=== PATIENT | male | born 1960 | race Two or more races ===

== ENCOUNTER 2022-10-05 08:24 | Inpatient (IN) | payer MEDICAID ==
[~2022-10-05] VITALS: Ht 170.2 cm; Wt 68.0 kg
[2022-10-05] MEDS ORDERED: FOLIC ACID 1 MG TABLET PO ONE (09:00)
[2022-10-05] MEDS ORDERED: IV NS 0.9% 1,000 ML BAG IV ONE (09:00)
[2022-10-05] MEDS ORDERED: THIAMINE HCL 100 MG TABLET PO ONE (09:00)
[2022-10-05] MEDS ORDERED: THIAMINE HCL 100 MG TABLET ONE (09:05)
[2022-10-05] MEDS ORDERED: FOLIC ACID 1 MG TABLET ONE (09:05)
[2022-10-05] MEDS ORDERED: LORAZEPAM INJ 2 MG/ML VIAL ONE ×2 (09:14→11:36)
--- NOTE | 2022-10-05 09:47 | NUR ---
MOVE SHEET SUBMITTED.
[2022-10-05] MEDS ORDERED: LORAZEPAM INJ 2 MG/ML VIAL IV ONE ×2 (10:00→11:30)
[2022-10-05] MEDS ORDERED: Thiamine 100 MG in IV D5W 50 ML IV SCH (10:00)
--- NOTE | 2022-10-05 10:02 | NUR ---
URINE SAMPLE COLLECTED, BLOOD COLLECTED, COVID SWAB COLLECTED AND GIVEN TO LAB
--- NOTE | 2022-10-05 10:03 | NUR ---
20 G SALINE LOCK ESTABLISHED IN LEFT FOREARM
[2022-10-05 10:09] LABS: BASOPHILS % (AUTO) 0.2 % (0.0-2.0); HEMATOCRIT 31 % (39-51); HEMOGLOBIN 10.3 g/dL (13.5-17.5); LYMPHOCYTES # (AUTO) 0.5 K/uL (0.8-4.8); LYMPHOCYTES % (AUTO) 8.4 % (20.0-44.0); MEAN CORPUSCULAR HGB CONC 33 g/dl (31.0-36.0); MEAN CORPUSCULAR VOLUME 96 fL (80-96); MONOCYTES # (AUTO) 0.9 K/uL (0.1-1.30); MONOCYTES % (AUTO) 15.1 % (2.0-12.0); NEUTROPHILS # (AUTO) 4.6 K/uL (1.8-8.9); NEUTROPHILS % (AUTO) 76.3 % (43.0-81.0); PLATELET COUNT (AUTO) 67 K/uL (150-450); RED BLOOD CELL COUNT(AUTO) 3.25 MIL/uL (4.5-6.0)
[2022-10-05 10:13] LABS: BILIRUBIN,URINE NEGATIVE (NEGATIVE); COLOR,URINE YELLOW (YELLOW); LEUKOCYTE ESTERASE ,URINE NEGATIVE (NEGATIVE); NITRITE, URINE NEGATIVE (NEGATIVE); PROTEIN,URINE 1+ mg/dl (NEGATIVE); UGLUCOSE 1+ mg/dL (NEGATIVE); UROBILINOGEN,URINE 0.2 EU/dL (0.2)
[2022-10-05 10:20] LABS: CALCIUM, SERUM 8.3 mg/dL (8.5-10.1); CARBON DIOXIDE 16 mmol/L (21-32); CHLORIDE 94 mmol/L (98-107); CREATININE 1.6 mg/dL (0.6-1.3); GLUCOSE 82 mg/dL (74-106); POTASSIUM 3.7 mmol/L (3.5-5.1); SODIUM SERUM 136 mmol/L (136-145); UREA NITROGEN, BLOOD 13 mg/dL (7-18)
[2022-10-05 10:21] LABS: BACTERIA,URINE None seen /HPF (None Seen); RBC,URINE 0-2 /HPF (0-2); SQUAMOUS EPITHELIAL CELL,UR Moderate /HPF (None Seen); WBC,URINE 0-2 /HPF (0-3)
[2022-10-05 10:34] LABS: ALANINE AMINOTRANSFERASE 169 U/L (12-78); ALBUMIN 3.7 g/dL (3.4-5.0); ALCOHOL, BLOOD < 3 mg/dL (0-0); ALKALINE PHOSPHATASE 173 U/L (46-116); ASPARTATE AMINOTRANSFERASE 448 U/L (15-37); BILIRUBIN,TOTAL 1.5 mg/dL (0.2-1.0); TOTAL PROTEIN, SERUM 7.2 g/dL (6.4-8.2)
[2022-10-05 10:36] LABS: ACETAMINOPHEN < 10 ug/ml (10-30)
--- NOTE | 2022-10-05 11:35 | NUR ---
LAB CALLED LACT[facility]ID 16.5 DR. SIU NOTIFIED.
[2022-10-05 11:41] LABS: MAGNESIUM 1.4 mg/dL (1.8-2.4); PHOSPHORUS 6.5 mg/dL (2.5-4.9)
[2022-10-05] MEDS ORDERED: IV LR 1000 ML 1,000 ML IV ONE (12:00)
[2022-10-05] MEDS ORDERED: Magnesium 1 GM/2 ML VIAL IV ONE (12:00)
[2022-10-05] MEDS ORDERED: VANCOMYCIN 1 GM in IV D5W 250 ML IV ONE (12:00)
[2022-10-05] MEDS ORDERED: CEFEPIME 1 GM in IV D5W 50 ML IV ONE (12:00)
[2022-10-05] MEDS ORDERED: Magnesium 1GM/D5W 100ML PREMIX 100 ML IV ONE ×3 (12:09→14:10)
[2022-10-05 12:16] LABS: ABG BASE EXCESS -6.8 mmol/L; ABG PCO2 32.1 mmHg (35.0-45.0); ABG PH 7.361 (7.350-7.450); ABG PO2 244.7 mmHg (75.0-100.0); COHb 0.2 % (0.5-1.5); MetHb 0.3 % (0.0-1.5); O2Hb 98.2 % (94.0-97.0); SITE, ABG Right Radial; VENT MODE, BG 15L O2 NRB
--- NOTE | 2022-10-05 12:19 | NUR ---
BED 313-1
--- NOTE | 2022-10-05 13:11 | NUR ---
RN Receiving Note Patient arrived to unit AOx4 able to express his concerns. Patent only speaks Namibian. Patient oriented to unit and made aware of call light use. Patient verbalized understanding VSS stares he has a drinking problem. Foul smell, clothing with fecal and urine put in belongings bag. All safety precautions taken, call light and table within reach. No signs of infiltration or respiratory distress.
[2022-10-05] MEDS ORDERED: Magnesium 1GM/D5W 100ML PREMIX PIGGYBACK IV ONE (13:30)
--- NOTE | 2022-10-05 14:50 | NUR ---
REPORT GIVEN TO PRABHJOT PALMER
[2022-10-05] MEDS ORDERED: ZOLPIDEM TARTRATE 5 MG TABLET PO PRN (15:00)
[2022-10-05] MEDS ORDERED: MAG HYDROX/AL HYDROX/SIMETH 30 ML UDC PO PRN (15:00)
[2022-10-05] MEDS ORDERED: MAGNESIUM HYDROXIDE 30 ML UDC PO PRN (15:00)
[2022-10-05] MEDS ORDERED: ACETAMINOPHEN 325 MG TABLET PO PRN ×2 (15:00→18:00)
[2022-10-05] MEDS ORDERED: Z GUARD REMEDY 4 OZ OINT TP PRN (15:00)
[2022-10-05] MEDS ORDERED: ENOXAPARIN SODIUM 40 MG/0.4 ML DISP.SYRIN SQ SCH (15:00)
[2022-10-05] MEDS ORDERED: ONDANSETRON HCL/PF 4 MG/2 ML VIAL IVP PRN (15:00)
[2022-10-05] MEDS ORDERED: LORAZEPAM 1 MG TABLET PO PRN (15:00)
[2022-10-05 15:10] VITALS: BP 121/91
[2022-10-05 16:00] VITALS: BP 121/91
[2022-10-05 18:38] LABS: THYROID STIMULATING HORMONE 1.416 uIU/mL (0.358-3.74)
[2022-10-05 18:43] LABS: IRON, SERUM 165 ug/dl (50-175); TOTAL IRON BINDING CAPACITY 171 ug/dl (250-450)
--- NOTE | 2022-10-05 19:24 | NUR ---
RN Closing Note Patient AOx4 able to express his concerns. Provided care and medications as ordered. All safety precautions taken, call light and table within reach. Report given to pm nurse for continuity of care.
--- NOTE | 2022-10-05 19:35 | NUR ---
RN OPENING NOTE RECEIVED PATIENT IN BED; AWAKE, ALERT AND ORIENTED X 3. GERMAN SPEAKING. ON ROOM AIR; TOLERATING WELL SATURATING @ 96%. NOT IN ANY FORM OF RESPIRATORY OR CARDIAC DISTRESS. DENIES ANY PAIN OR DISCOMFORT AT THIS TIME. WITH IV ACCESS ON LEFT FOREARM 20G; PATENT AND INTACT INFUSING WITH NS 1L RUNNING @ 75 ML/HR; FLUSHES WELL. ON TELE MONITORING WITH CURRENT READING OF SINUS RHYTHM HR-87 BPM. SAFETY MEASURES IMPLEMENTED: CALL LIGHT AND TABLE WITHIN EASY REACH, SIDE RAILS UP X 3, BED IN LOWEST LOCKED POSITION. WILL CONTINUE TO MONITOR
[2022-10-05 20:00] VITALS: BP 115/61
[2022-10-05] MEDS: PIPERACILLIN /TAZOBACTAM 3.375 G in IV D5W 50 ML IV SCH (21:07)
[2022-10-06] MEDS: PIPERACILLIN /TAZOBACTAM 3.375 G in IV D5W 50 ML IV SCH ×5 (02:26→23:18)
[2022-10-06 04:00] VITALS: BP 104/63
[2022-10-06 06:10] LABS: BASOPHILS % (AUTO) 0.3 % (0.0-2.0); EOSINOPHILS % (AUTO) 0.6 % (0.0-6.0); HEMATOCRIT 27 % (39-51); HEMOGLOBIN 9.1 g/dL (13.5-17.5); LYMPHOCYTES # (AUTO) 0.8 K/uL (0.8-4.8); LYMPHOCYTES % (AUTO) 17.5 % (20.0-44.0); MEAN CORPUSCULAR HGB CONC 34 g/dl (31.0-36.0); MEAN CORPUSCULAR VOLUME 93 fL (80-96); MONOCYTES # (AUTO) 0.4 K/uL (0.1-1.30); MONOCYTES % (AUTO) 9.8 % (2.0-12.0); NEUTROPHILS # (AUTO) 3.3 K/uL (1.8-8.9); NEUTROPHILS % (AUTO) 71.8 % (43.0-81.0); RED BLOOD CELL COUNT(AUTO) 2.89 MIL/uL (4.5-6.0); WHITE BLOOD COUNT (AUTO) 4.6 K/uL (4.3-11.0)
[2022-10-06 06:24] LABS: PLATELET COUNT (AUTO) 35 K/uL (150-450)
--- NOTE | 2022-10-06 06:42 | NUR ---
RN CLOSING NOTE PATIENT IN BED; AWAKE, A/O X 3. YAKUT SPEAKING. STABLE ON ROOM AIR. IN NO ACUTE DISTRESS . DENIES ANY PAIN OR DISCOMFORT AT THIS TIME. WITH IV ACCESS LEFT FOREARM 20G; PATENT AND INTACT INFUSING WITH NS 1L RUNNING @ 75 ML/HR; FLUSHES WELL. ON TELE MONITORING WITH CURRENT READING OF SINUS RHYTHM HR-78 BPM. SAFETY MEASURES MAINTAINED: CALL LIGHT AND TABLE WITHIN REACH, SIDE RAILS UP X 3, BED IN LOWEST LOCKED POSITION. ENDORSED TO MORNING SHIFT FOR ZAKI.
[2022-10-06 06:44] LABS: ALBUMIN 2.9 g/dL (3.4-5.0); CALCIUM, SERUM 7.3 mg/dL (8.5-10.1); CREATININE 1.1 mg/dL (0.6-1.3); PHOSPHORUS 3.2 mg/dL (2.5-4.9); POTASSIUM 3.3 mmol/L (3.5-5.1); TOTAL PROTEIN, SERUM 5.9 g/dL (6.4-8.2)
[2022-10-06 06:52] LABS: THYROID STIMULATING HORMONE 1.492 uIU/mL (0.358-3.74)
--- NOTE | 2022-10-06 07:22 | NUR ---
RN OPENING NOTE PATIENT AWAKE IN BED RESTING, A/O X 3. NO S/S OF PAIN NOTED AT THIS TIME. ON ROOM AIR, NO DISTRESS OR SHORTNESS OF BREATH NOTED. IV ACCESS LFA #20G, INTACT, PATENT AND FLUSHING WELL. PATIENT WITH EXTERNAL ENGINEERING PROGRAM ANALYST WITH CURRENT READING OF SR AND HR OF 78, NO CARDIAC DISTRESS NOTED. FALL AND SAFETY MEASURES IN PLACE, BED ALARM ON, BED IN LOW AND LOCK POSITION, CALL LIGHT AND TABLE WITHIN EASY REACH, SIDE RAILS UP X2. WILL CONTINUE TO MONITOR.
[2022-10-06 08:00] VITALS: BP 117/68
[2022-10-06] MEDS: FOLIC ACID 1 MG TABLET PO SCH (08:14)
[2022-10-06] MEDS: PANTOPRAZOLE 40 MG VIAL IV SCH (08:14)
[2022-10-06] MEDS: MULTIVITAMINS,THERAGRAN 1 UDTAB TABLET PO SCH (08:14)
[2022-10-06] MEDS: THIAMINE HCL 100 MG TABLET PO SCH (08:14)
[2022-10-06] MEDS ORDERED: POTASSIUM CHLORIDE 20 MEQ TAB.PRT.SR PO ONE (09:00)
[2022-10-06 11:33] VITALS: BP 129/75
[2022-10-06 11:39] LABS: BASOPHILS % (MANUAL) 0 % (0.0-2.0); EOSINOPHILS % (MANUAL) 1 % (0-4); LYMPHOCYTES % (MANUAL) 10 % (16-48); MONOCYTES % (MANUAL) 8 % (0-11.0); NEUTROPHILS % (MANUAL) 81 (42-76)
[2022-10-06] MEDS ORDERED: VANCOMYCIN 1 GM in IV D5W 250ml IV SCH (12:00)
[2022-10-06 16:00] VITALS: BP 142/77
[2022-10-06] MEDS: IV NS 0.9% 1,000 ML IV PRN (17:24)
--- NOTE | 2022-10-06 19:22 | NUR ---
RN CLOSING NOTE PATIENT AWAKE IN BED RESTING, A/O X 3. NO S/S OF PAIN NOTED AT THIS TIME. ON ROOM AIR, NO DISTRESS OR SHORTNESS OF BREATH NOTED. IV ACCESS LFA #20G, INTACT, PATENT AND FLUSHING WELL. PATIENT WITH EXTERNAL ARTISTIC ASSOCIATE WITH CURRENT READING OF SR AND HR OF 80, NO CARDIAC DISTRESS NOTED. SCHEDULE MEDICATIONS ADMINISTERED. FALL AND SAFETY MEASURES IN PLACE, BED ALARM ON, BED IN LOW AND LOCK POSITION, CALL LIGHT AND TABLE WITHIN EASY REACH, SIDE RAILS UP X2. WILL ENDORSE TO STATION ENGINEER.
--- NOTE | 2022-10-06 19:30 | NUR ---
RN OPENING NOTE RECEIVED PATIENT IN BED; AWAKE, ALERT AND ORIENTED X 3. KISWAHILI SPEAKING. ON ROOM AIR; TOLERATING WELL SATURATING @ 95%. NOT IN ANY FORM OF RESPIRATORY OR CARDIAC DISTRESS. DENIES ANY PAIN OR DISCOMFORT AT THIS TIME. ON TELE MONITORING WITH CURRENT READING OF SINUS RHYTHM HR-87 BPM. WITH IV ACCESS ON LEFT FOREARM 20G; PATENT AND INTACT INFUSING WITH NS 1L RUNNING @ 75 ML/HR; FLUSHES WELL. SAFETY MEASURES IMPLEMENTED: CALL LIGHT AND TABLE WITHIN EASY REACH, SIDE RAILS UP X 3, BED IN LOWEST LOCKED POSITION. WILL CONTINUE TO MONITOR
[2022-10-06 20:00] VITALS: BP 133/83
[2022-10-07] VITALS: BP 145/99
[2022-10-07 04:00] VITALS: BP 152/94
[2022-10-07] MEDS: PIPERACILLIN /TAZOBACTAM 3.375 G in IV D5W 50 ML IV SCH (05:24)
[2022-10-07 06:15] LABS: BASOPHILS % (AUTO) 0.7 % (0.0-2.0); EOSINOPHILS % (AUTO) 1.2 % (0.0-6.0); HEMATOCRIT 27 % (39-51); HEMOGLOBIN 9.3 g/dL (13.5-17.5); LYMPHOCYTES # (AUTO) 0.8 K/uL (0.8-4.8); LYMPHOCYTES % (AUTO) 20.8 % (20.0-44.0); MEAN CORPUSCULAR HGB CONC 34 g/dl (31.0-36.0); MEAN CORPUSCULAR VOLUME 94 fL (80-96); MONOCYTES # (AUTO) 0.6 K/uL (0.1-1.30); MONOCYTES % (AUTO) 14.8 % (2.0-12.0); NEUTROPHILS # (AUTO) 2.4 K/uL (1.8-8.9); NEUTROPHILS % (AUTO) 62.5 % (43.0-81.0); RED BLOOD CELL COUNT(AUTO) 2.92 MIL/uL (4.5-6.0); WHITE BLOOD COUNT (AUTO) 3.8 K/uL (4.3-11.0)
[2022-10-07 06:31] LABS: PLATELET COUNT (AUTO) 31 K/uL (150-450)
--- NOTE | 2022-10-07 06:40 | NUR ---
RN CLOSING NOTE PATIENT IN BED; AWAKE, A/O X 3. IRISH SPEAKING. STABLE ON ROOM AIR. IN NO ACUTE DISTRESS . DENIES ANY PAIN OR DISCOMFORT AT THIS TIME. WITH IV ACCESS LEFT FOREARM 20G; PATENT AND INTACT INFUSING WITH NS 1L RUNNING @ 75 ML/HR; FLUSHES WELL. ON TELE MONITORING WITH CURRENT READING OF SINUS RHYTHM HR-72 BPM. SAFETY MEASURES MAINTAINED: CALL LIGHT AND TABLE WITHIN REACH, SIDE RAILS UP X 3, BED IN LOWEST LOCKED POSITION. ENDORSED TO MORNING SHIFT FOR ZAKI.
[2022-10-07 06:43] LABS: ALBUMIN 2.9 g/dL (3.4-5.0); BILIRUBIN,TOTAL 1.6 mg/dL (0.2-1.0); CALCIUM, SERUM 7.2 mg/dL (8.5-10.1); CREATININE 0.9 mg/dL (0.6-1.3); MAGNESIUM 1.7 mg/dL (1.8-2.4); PHOSPHORUS 2.3 mg/dL (2.5-4.9); POTASSIUM 3.8 mmol/L (3.5-5.1)
--- NOTE | 2022-10-07 07:15 | NUR ---
RN OPENING NOTE RECEIVED PATIENT IN BED; AWAKE, ALERT AND ORIENTED X 3. BAHRAINI SPEAKING, SLAT GRADER ASSISTS KLYSTROM TUBE TESTER, WITH SITTER, ON ROOM AIR; TOLERATING WELL SATURATING @ 97%. NOT IN ANY FORM OF RESPIRATORY OR CARDIAC DISTRESS. DENIES ANY PAIN OR DISCOMFORT AT THIS TIME. ON TELE MONITORING WITH CURRENT READING OF SINUS RHYTHM HR-85 BPM. WITH IV ACCESS ON LEFT FOREARM 20G; PATENT AND INTACT INFUSING WITH NS 1L RUNNING @ 75 ML/HR; FLUSHES WELL. SAFETY MEASURES IMPLEMENTED: CALL LIGHT AND TABLE WITHIN EASY REACH, SIDE RAILS UP X 3, BED IN LOWEST LOCKED POSITION. WILL CONTINUE TO MONITOR
[2022-10-07] MEDS: THIAMINE HCL 100 MG TABLET PO SCH (08:29)
[2022-10-07] MEDS: FOLIC ACID 1 MG TABLET PO SCH (08:33)
[2022-10-07] MEDS: PANTOPRAZOLE 40 MG VIAL IV SCH (08:33)
[2022-10-07] MEDS: MULTIVITAMINS,THERAGRAN 1 UDTAB TABLET PO SCH (08:34)
--- NOTE | 2022-10-07 09:59 | NUR ---
SS consult requested over the weekend for homelessness & ETOH withdrawal. SW will follow up at a later time.
[2022-10-07] MEDS ORDERED: K PHOS NEUTRAL 250 MG TABLET PO ONE (12:00)
--- NOTE | 2022-10-07 12:14 | NUR ---
SS Consult: SS consult requested for homelessness and alcohol rehab referrals. The pt. is a 62-year-old male pt. who was admitted to [facility] due to alcohol withdrawal per EMR. Upon SS consult, the pt. is Alert & Oriented x 4 and makes good eye contact. The pt. appears unkempt ad SW consucted interview in Macedonian per pt.'s request. Pt. has depressed mood & affect. Pt.s speech is clear and thought process is WNL. The pt. is hard of hearing. Pt. remained calm & cooperative throughout interview. Pt. denies SI/HI and states denies hallucinations. SW explored pt.s living situation. Per pt. he is currently experiencing homelessness and has been staying on the street. Pt. stated he has a friend that allows him to sleep in his garage. [facility] provided pt. with winter intermediate resources and referred him to [facility] for rehousing. Pt. stated he will follow up with resources. SW explored pt.s drug & ETOH use. Pt. states he does not use drugs and does drink alcohol. Per pt. he drinks small amount of alcohol because it helps keep him warm. Pt. minimizes that drinking is a problem for him. SW offered pt. referral to rehab facility and pt. refused. The pt. stated he is ambulatory and independent with all his ADLs. Plan: [facility] provided pt. with the following homeless and addiction resources and pt. accepted them. Pt. accepted homeless resources to find intermediate placement. Pt. stated he will go to his friends home to see if he will allow him to sleep in his garage as he as in the past. Pt. signed homeless waiver and it was placed in the pt.s chart. [facility] provided pt. with bus TAP card and pt. accepted it. [place] Usp list : [facility]; AB Adult WSP site; NAV[facility]O Adult WSP site; and WFD Adult WSP site; instruction to call 211 for availability. Year-round shelters: [facility] [place] [address] [place] [address] ; [facility] [place] [address] [place] [address]; [facility] [address] [place] [address]. [facility] [address] Hygiene: [facility]: [address] [place] ; [facility] [address] [address] [place] ; [facility] [address], [place] . Food Resources: [place] [facility] at [facility]- [address] [place]; Meet Each Need with Dignity ([facility]) [address] [facility] [place]; [facility] [address] [facility]; [facility] [address] [facility]. Mental Health resources provided: [facility] [address] [place] [address] ; [facility] [address], [place], [place] [phone] ; [facility] [address] [place] [address] ; [facility] [address] [place], [place] [id number] Healthcare Clinics: [facility] [address], [address] [place]. [place] ; [facility] [address] [place] [address]; [facility] [address] [place] [address] [phone] Counseling--Outpatient [facility] [place] [address], [place] [address] (Specializes in in-depth psychotherapy for emotional distress: anxiety, depression, interpersonal conflicts, life transitions, childhood abuse) [facility] [address] [place] [address] (Assist with solving problem marital difficulties, separation & divorce, aging parents, & grief, chronic & terminal illness) [facility] [address] [place] [address] (Deal with loss & grief, anxiety, marital difficulties) Homebound/Mental Health Services [address] [facility], [address] [place] [address] (Provide in-home mental services to people who are incapable of leaving their homes) [facility] Elder[facility] Senior Service/Resource Center [address] [place] [address] [facility] [address] [place] [address] PSYCHIATRIC OUTPATIENT SERVICES [facility] Partial Hospitalization and Intensive Outpatient Program (Managed Care and [place] Only)[address] [facility]. [facility] [phone] [facility] Partial Hospitalization and Outpatient Fqtcyom[address] [place], [place] [phone] Replaced by [facility] [address]ister [id number] [facility] [facility] [place], [place] [phone] [facility] Partial Hospitalization and Outpatient [id number] [place], [phone] Substance Abuse resources provided included: [facility] Substance Abuse Self-Helpline ([facility]) ; CRI -[facility]LP [address] [facility] [place]. [place] [address] ; [facility] [address] [facility] [address] ; [facility] [address] [facility] [facility] [address] ; [facility] [address] [facility] [address] ; [facility] [address] [facility] [address] ; [facility] [address] [facility] [phone] ; [facility] Substance Abuse Helpline(SAS)-[facility] ; [facility] ; [place] [place]; [facility] [place]; [facility] [place]; [facility] Iker [place]; [facility] [place]; [facility]; [facility] [place]; [facility]. Nita Hernández; Alcoholics Anonymous -SFV; Ac-Qubg-Oznbfgg ; Marijuana Anonymous -SFV; Narcotics Anonymous www.na.org;
[2022-10-07] MEDS: Magnesium 1GM/D5W 100ML PREMIX 100 ML IV SCH ×2 (13:13→13:26)
[2022-10-07] MEDS: VANCOMYCIN 0.75 GM in IV D5W 250 ML IV SCH ×3 (13:30)
[2022-10-07] MEDS: PIPERACILLIN /TAZOBACTAM 3.375 G in IV D5W 100 ML IV SCH ×2 (14:22→21:11)
[2022-10-07] MEDS: LORAZEPAM INJ 2 MG/ML VIAL IV PRN ×2 (16:24→22:28)
[2022-10-07 19:27] LABS: BAND % (MANUAL) 1 % (0.0-5.0); EOSINOPHILS % (MANUAL) 1 % (0-4); LYMPHOCYTES % (MANUAL) 7 % (16-48); MONOCYTES % (MANUAL) 7 % (0-11.0); NEUTROPHILS % (MANUAL) 84 (42-76)
--- NOTE | 2022-10-07 19:45 | NUR ---
RN CLOSING NOTE PT IN BED; AWAKE, A/O X 3. NIGERIAN SPEAKING, WEBLOGIC ADMINISTRATOR SALES ENGAGEMENT MANAGER, STABLE ON ROOM AIR. IN NO ACUTE DISTRESS . DENIES ANY PAIN OR DISCOMFORT AT THIS TIME. WITH IV ACCESS LEFT FOREARM 20G; PATENT AND INTACT INFUSING WITH NS 1L RUNNING @ 75 ML/HR; FLUSHES WELL. ON TELE MONITORING WITH CURRENT READING OF SINUS RHYTHM HR-76 BPM. SAFETY MEASURES MAINTAINED: CALL LIGHT AND TABLE WITHIN REACH, SIDE RAILS UP X 3, BED IN LOWEST LOCKED POSITION. ENDORSED TO FINISHING AREA OPERATOR RN FOR ZAKI.
--- NOTE | 2022-10-07 21:55 | NUR ---
RN OPENING NOTE RECEIVED PATIENT LYING AWAKE IN BED. A/O X 3. KAZAKH SPEAKING, WITH EPISODES OF CONFUSION. SITTER AT BEDSIDE. STABLE ON ROOM AIR. IN NO ACUTE DISTRESS. DENIES ANY PAIN OR DISCOMFORT AT THIS TIME. WITH IV ACCESS LEFT FOREARM #20, PATENT AND INTACT INFUSING WITH NS 1L RUNNING @ 75 ML/HR. ON TELE MONITORING WITH CURRENT READING OF SINUS RHYTHM HR-76 BPM. SAFETY MEASURES MAINTAINED. KEPT COMFORTABLE. WILL CONTINUE TO MONITOR.
--- NOTE | 2022-10-07 22:30 | NUR ---
RN NOTES - PATIENT IS AGITATED AND RESTLESS. BEEN PULLING OUT HIS IV PER SITTER. SECURED IV WITH KERLIX AND SLEEVES ON. GIVEN ATIVAN IV PRN ORDERED. KEPT COMFORTABLE.
--- NOTE | 2022-10-08 00:42 | NUR ---
RN NOTES - PATIENT IS CONFUSED. REFUSED VANCO ANTIBIOTIC. EXPLAINED RISK AND BENEFITS X3. STILL REFUSED. WITH SITTER AT BEDSIDE. KEPT COMFORTABLE.
[2022-10-08] MEDS: PIPERACILLIN /TAZOBACTAM 3.375 G in IV D5W 100 ML IV SCH ×4 (05:00→20:43)
--- NOTE | 2022-10-08 05:17 | NUR ---
RN NOTES - PATIENT REFUSED ZOSYN IV. EXPLAINED RISK AND BENEFITS X3. STILL REFUSED. WITH SITTER AT BEDSIDE. PATIENT REFUSED VITAL SIGNS TAKEN. REFUSED LINEN CHANGE. PROVIDED TEACHING. REFUSED.
--- NOTE | 2022-10-08 06:26 | NUR ---
MOBILE SOLUTIONS ARCHITECT CLOSING NOTE RECEIVED PATIENT LYING ASLEEP IN BED. A/O X 3. MALAY SPEAKING, WITH EPISODES OF CONFUSION. SITTER AT BEDSIDE. STABLE ON ROOM AIR. IN NO ACUTE DISTRESS. DENIES ANY PAIN OR DISCOMFORT AT THIS TIME. WITH IV ACCESS LEFT FOREARM #20, PATENT AND INTACT, WITH KERLIX AND SLEEVES ON. TELE MONITOR ON STANDBY FOR NOW. SEMICONDUCTOR ENGINEER WAS INFORMED. SAFETY MEASURES MAINTAINED. KEPT COMFORTABLE. WILL ENDORSE TO NEXT SHIFT RN FOR ZAKI.
[2022-10-08] MEDS: PANTOPRAZOLE 40 MG TABLET.DR PO SCH (08:12)
--- NOTE | 2022-10-08 08:41 | NUR ---
LION TRAINER OPENING NOTE RECEIVED PATIENT LYING AWAKE IN BED. A/O X 3. CZECH SPEAKING, BIOENGINEER AND COLLEAGUE INTERPRETERS, WITH EPISODES OF CONFUSION. SITTER AT BEDSIDE. STABLE ON ROOM AIR. IN NO ACUTE DISTRESS. DENIES ANY PAIN OR DISCOMFORT AT THIS TIME. WITH IV ACCESS LEFT FOREARM #20, PATENT AND INTACT, WITH KERLIX AND SLEEVES ON. TELE MONITOR ON STANDBY FOR NOW. MONUMENT LETTERER WAS INFORMED. SAFETY MEASURES MAINTAINED. KEPT COMFORTABLE. BM X1, SOFT, SO FAR, WILL CONTINUE TO MONITOR
[2022-10-08] MEDS: MULTIVITAMINS,THERAGRAN 1 UDTAB TABLET PO SCH (09:59)
[2022-10-08] MEDS: THIAMINE HCL 100 MG TABLET PO SCH (09:59)
[2022-10-08] MEDS: FOLIC ACID 1 MG TABLET PO SCH (09:59)
[2022-10-08 11:20] LABS: BASOPHILS % (AUTO) 0.3 % (0.0-2.0); EOSINOPHILS % (AUTO) 1.5 % (0.0-6.0); HEMATOCRIT 27 % (39-51); HEMOGLOBIN 9.2 g/dL (13.5-17.5); LYMPHOCYTES # (AUTO) 0.5 K/uL (0.8-4.8); LYMPHOCYTES % (AUTO) 16.3 % (20.0-44.0); MEAN CORPUSCULAR HGB CONC 34 g/dl (31.0-36.0); MEAN CORPUSCULAR VOLUME 94 fL (80-96); MONOCYTES # (AUTO) 0.7 K/uL (0.1-1.30); MONOCYTES % (AUTO) 21.4 % (2.0-12.0); NEUTROPHILS # (AUTO) 1.9 K/uL (1.8-8.9); NEUTROPHILS % (AUTO) 60.5 % (43.0-81.0); RED BLOOD CELL COUNT(AUTO) 2.92 MIL/uL (4.5-6.0); WHITE BLOOD COUNT (AUTO) 3.2 K/uL (4.3-11.0)
[2022-10-08 11:29] LABS: PLATELET COUNT (AUTO) 43 K/uL (150-450)
[2022-10-08 11:35] LABS: ALBUMIN 2.9 g/dL (3.4-5.0); BILIRUBIN,TOTAL 1.5 mg/dL (0.2-1.0); CALCIUM, SERUM 7.7 mg/dL (8.5-10.1); CREATININE 0.8 mg/dL (0.6-1.3); MAGNESIUM 1.5 mg/dL (1.8-2.4); POTASSIUM 3.3 mmol/L (3.5-5.1); TOTAL PROTEIN, SERUM 6.2 g/dL (6.4-8.2)
--- NOTE | 2022-10-08 11:41 | NUR ---
PLATELET RESULT TODAY REPORTED TO LACY MCGRAW FROM YESTERDAY
[2022-10-08] MEDS: VANCOMYCIN 0.75 GM in IV D5W 250 ML IV SCH ×4 (12:21→23:54)
--- NOTE | 2022-10-08 18:15 | NUR ---
STEWARDESSES TEACHER CLOSING NOTE PATIENT AWAKE IN BED. A/O X 3. CAYMAN ISLANDER SPEAKING, FOOD SAFETY SPECIALIST INTERPRETERS, WITH EPISODES OF CONFUSION. SITTER AT BEDSIDE. STABLE ON ROOM AIR. IN NO ACUTE DISTRESS. DENIES ANY PAIN OR DISCOMFORT AT THIS TIME. WITH IV ACCESS LEFT FOREARM #20, PATENT AND INTACT, WITH KERLIX AND SLEEVES ON. TELE MONITOR BACK AT 1635HR. WAD BLANKING PRESS ADJUSTER AWARE. SAFETY MEASURES MAINTAINED. KEPT COMFORTABLE. WILL ENDORSE TO LINE ASSEMBLER RN FOR ZAKI.
[2022-10-08 19:25] LABS: EOSINOPHILS % (MANUAL) 4 % (0-4); LYMPHOCYTES % (MANUAL) 14 % (16-48); MONOCYTES % (MANUAL) 13 % (0-11.0); NEUTROPHILS % (MANUAL) 69 (42-76)
--- NOTE | 2022-10-08 19:30 | NUR ---
MS RN OPENING NOTE RECEIVED PT AWAKE IN BED. SITTER AT BEDSIDE. A/O X2 WITH PERIODS OF CONFUSION. PT STABLE ON ROOM AIR. NO SOB OR S/S OF RESPIRATORY DISTRESS. BREATHING EVEN AND UNLABORED. IV ACCESS LFA 20G SL, INTACT AND PATENT. SAFETY PRECAUTIONS IN PLACE. BED IN LOWEST LOCKED POSITION, HOB ELEVATED, SIDE RAILS UP X3, AND CALL LIGHT AND TABLE WITHIN REACH. ALL NEEDS MET AT THIS TIME.
[2022-10-08] MEDS ORDERED: POTASSIUM CHLORIDE 10 MEQ TABLET.SA PO ONE (21:00)
[2022-10-08] MEDS: Magnesium 1GM/D5W 100ML PREMIX 100 ML IV SCH ×2 (21:33→22:39)
[2022-10-09] MEDS: PIPERACILLIN /TAZOBACTAM 3.375 G in IV D5W 100 ML IV SCH (04:52)
--- NOTE | 2022-10-09 05:28 | NUR ---
RN NOTE INFORM SLITTER HELPER [place]O OF INCREASED BP DURING SHIFT. WITH NEW ORDER FOR HYDRALAZINE 10 MG IV Q6H PRN FOR SBP >180. NEW ORDER NOTED AND CARRIED OUT.
[2022-10-09] MEDS ORDERED: hydrALAZINE HCL IV 20 MG VIAL IV PRN (05:30)
[2022-10-09 06:38] LABS: BASOPHILS % (AUTO) 0.2 % (0.0-2.0); EOSINOPHILS % (AUTO) 1.9 % (0.0-6.0); HEMATOCRIT 28 % (39-51); HEMOGLOBIN 9.4 g/dL (13.5-17.5); LYMPHOCYTES # (AUTO) 0.6 K/uL (0.8-4.8); LYMPHOCYTES % (AUTO) 18.4 % (20.0-44.0); MEAN CORPUSCULAR HGB CONC 34 g/dl (31.0-36.0); MEAN CORPUSCULAR VOLUME 94 fL (80-96); MONOCYTES # (AUTO) 0.9 K/uL (0.1-1.30); MONOCYTES % (AUTO) 27.9 % (2.0-12.0); NEUTROPHILS # (AUTO) 1.7 K/uL (1.8-8.9); NEUTROPHILS % (AUTO) 51.6 % (43.0-81.0); PLATELET COUNT (AUTO) 55 K/uL (150-450); RED BLOOD CELL COUNT(AUTO) 2.93 MIL/uL (4.5-6.0); WHITE BLOOD COUNT (AUTO) 3.3 K/uL (4.3-11.0)
--- NOTE | 2022-10-09 06:50 | NUR ---
MS RN CLOSING NOTE PT AWAKE IN BED. SITTER AT BEDSIDE. A/O X2-3 WITH PERIODS OF CONFUSION. PT STABLE ON ROOM AIR. NO SOB OR S/S OF RESPIRATORY DISTRESS. BREATHING EVEN AND UNLABORED. IV ACCESS LFA 20G RUNNING NS @ 75 ML/HR AND RFA 20G SL, INTACT AND PATENT. ALL DUE MEDS GIVEN ORDERED. KEPT CLEAN AND DRY. SAFETY PRECAUTIONS IN PLACE AT ALL TIMES. BED IN LOWEST LOCKED POSITION, HOB ELEVATED, SIDE RAILS UP X3, AND CALL LIGHT AND TABLE WITHIN REACH. ALL NEEDS MET AT THIS TIME AND WILL ENDORSE TO ONCOMING NURSE FOR ZAKI.
[2022-10-09 07:01] LABS: ALBUMIN 2.8 g/dL (3.4-5.0); BILIRUBIN,TOTAL 1.2 mg/dL (0.2-1.0); CALCIUM, SERUM 7.9 mg/dL (8.5-10.1); CREATININE 0.7 mg/dL (0.6-1.3); MAGNESIUM 1.7 mg/dL (1.8-2.4); POTASSIUM 3.4 mmol/L (3.5-5.1); TOTAL PROTEIN, SERUM 6.2 g/dL (6.4-8.2)
[2022-10-09 08:00] VITALS: BP 139/79
--- NOTE | 2022-10-09 08:00 | NUR ---
MS RN OPENING NOTE RECEIVED PATIENT LYING AWAKE IN BED. A/O X 3. SURINAMESE SPEAKING, SUPERVISOR CUTTING AND BONING AND COLLEAGUE INTERPRETERS, WITH EPISODES OF CONFUSION. SITTER AT BEDSIDE. STABLE ON ROOM AIR. IN NO ACUTE DISTRESS. ADMITS TO MILD ABDOMINAL PAIN AT THIS TIME, BUT REFUSES MEDICATION FOR PAIN. IV ACCESS LEFT FOREARM #20, PATENT AND INTACT, WITH KERLIX AND SLEEVES ON. IV ACCESS ON RIGHT FOREARM PATTENT AND INTACT. SAFETY MEASURES MAINTAINED. KEPT COMFORTABLE. WILL CONTINUE TO MONITOR
[2022-10-09] MEDS: THIAMINE HCL 100 MG TABLET PO SCH (08:29)
[2022-10-09] MEDS: PANTOPRAZOLE 40 MG TABLET.DR PO SCH (08:29)
[2022-10-09] MEDS: FOLIC ACID 1 MG TABLET PO SCH (08:29)
[2022-10-09] MEDS: MULTIVITAMINS,THERAGRAN 1 UDTAB TABLET PO SCH (08:29)
--- NOTE | 2022-10-09 08:30 | NUR ---
LAB REPORT COMPENSATION/BENEFITS SPECIALIST, RIVER, REPORTED THAT PATIENT'S STOOL CULTURE TESTED POSITIVE FOR cLOSTRIDIUM DIFFICILE AT 08:15 AM. NOTIFIED HOSPITALIST, RAGHAV BROWN OF POSITIVE C. diff. ANTIBIOTICS TYPE, DOSE AND ROUTES CHANGED. PATIENT MOVED TO ROOM 329 AND PUT ON CONTACT ISOLATION PRECAUTIONS FOR c. diff. HEMOGLOBIN A1c = 10.4. gwendolyn BROWN ORDERED ACCUCHECKS AND GLUCOPHAGE PO BID. PATIENT HAS GOOD APPETITE EATING 100% OF MEALS. WILL CONTINUE TO MONITOR.
[2022-10-09] MEDS ORDERED: MAGNESIUM OXIDE 400 MG TABLET PO ONE (10:00)
[2022-10-09] MEDS: METFORMIN 500 MG TABLET PO SCH ×2 (10:12→17:24)
[2022-10-09] MEDS: ACIDOPHILUS/BULGARICUS 1 EACH TAB.CHEW PO SCH ×3 (10:12→17:24)
[2022-10-09] MEDS ORDERED: POTASSIUM CHLORIDE 20 MEQ TAB.PRT.SR PO SCH (11:00)
[2022-10-09] MEDS: METRONIDAZOLE 500 MG TABLET PO SCH ×2 (12:40→21:56)
[2022-10-09] MEDS: VANCOMYCIN HCL 125 MG/2.5 ML ORAL.SUSP PO SCH ×3 (13:29→21:56)
[2022-10-09] MEDS: GENTAMICIN 320 MG in IV D5W 100 ML IV SCH (14:20)
[2022-10-09 15:52] VITALS: BP 140/77
[2022-10-09 17:42] LABS: BAND % (MANUAL) 1 % (0.0-5.0); EOSINOPHILS % (MANUAL) 1 % (0-4); LYMPHOCYTES % (MANUAL) 8 % (16-48); MONOCYTES % (MANUAL) 19 % (0-11.0); NEUTROPHILS % (MANUAL) 71 (42-76)
--- NOTE | 2022-10-09 18:48 | NUR ---
MS RN CLOSING NOTE PATIENT AWAKE IN BED. A/O X 3 WATCHING TELEVISION. KINYARWANDA SPEAKING, BIOFUELS ENGINEERING MANAGER INTERPRETERS, WITH EPISODES OF CONFUSION. STABLE ON ROOM AIR. IN NO ACUTE DISTRESS. DENIES ANY PAIN OR DISCOMFORT AT THIS TIME. PT HAS IV ACCESS LEFT FOREARM #20, PATENT AND INTACT, WITH KERLIX AND SLEEVES ON. PT REFUSED TO WORK WITH PHYSICAL THERAPY TODAY. PATIENT TOOK ALL MEDICATIONS PRESCRIBED AND OTHERWISE COMPLIANT WITH CONTACT ISOLATION PRECAUTIONS. SAFETY MEASURES MAINTAINED. KEPT COMFORTABLE. WILL ENDORSE TO WARP PREPARER RN FOR ZAKI.
[2022-10-09] MEDS: IV NS 0.9% 1,000 ML IV PRN (19:28)
[2022-10-09 20:00] VITALS: BP 150/80
--- NOTE | 2022-10-09 20:07 | NUR ---
MS RN OPENING NOTES: RECEIVED PATIENT SLEEP IN BED COMFORTABLY, AROUSABLE TO VERBAL STIMULI, BED IN LOW POSITION, CALL LIGHTS WITHIN REACH, NO COMPLAIN OF PAIN AND DISCOMFORT AT THIS TIME, ON ROOM AIR SATURATING WELL, IV LINE AT LFA#20 WITH ONGOING NSS@75ML/HR INFUSING WELL, PATIENT IS A/OX3 MALAY SPEAKING ABLE TO MAKE NEEDS KNOWN, KEPT CLEAN AND DRY ALL NEEDS MET WILL CONTINUE TO MONITOR.
--- NOTE | 2022-10-09 22:00 | NUR ---
RN MS NOTE RECEIVED REPORT FROM NURSE ARENAS. PT RESTING IN BED. MEDS ADMINISTERED. WILL CARE FOR PT, AND CONTINUE POC.
[2022-10-10] MEDS: METRONIDAZOLE 500 MG TABLET PO SCH ×3 (05:58→20:14)
[2022-10-10 07:07] LABS: CALCIUM, SERUM 7.9 mg/dL (8.5-10.1); CREATININE 0.7 mg/dL (0.6-1.3); POTASSIUM 3.6 mmol/L (3.5-5.1)
--- NOTE | 2022-10-10 07:10 | NUR ---
MS RN CLOSING NOTE LEFT PT AWAKE IN BED. PT A/O X3 WITH PERIODS OF CONFUSION. PT STABLE ON ROOM AIR. NO SOB OR S/S OF RESPIRATORY DISTRESS. BREATHING EVEN AND UNLABORED. IV ACCESS LFA 20G RUNNING NS @ 75 ML/HR AND RFA 20G SL, INTACT AND PATENT. ALL DUE MEDS GIVEN ORDERED. KEPT CLEAN AND DRY. BS CHECKED, BS: 226 THIS AM.SAFETY PRECAUTIONS IN PLACE AT ALL TIMES. BED IN LOWEST LOCKED POSITION, HOB ELEVATED, SIDE RAILS UP X3, AND CALL LIGHT AND TABLE WITHIN REACH. ALL NEEDS MET AT THIS TIME. WILL ENDORSE TO ONCOMING NURSE FOR ZAKI.
--- NOTE | 2022-10-10 07:52 | NUR ---
MS RN OPENING NOTE RECEIVED PATIENT LYING AWAKE IN BED. WATCHING TELEVISION, A/O X 3. PATIENT SPEAKS KINYARWANDA. STABLE ON ROOM AIR. IN NO ACUTE DISTRESS. ADMITS TO MILD ABDOMINAL PAIN AT THIS TIME, BUT REFUSES MEDICATION FOR PAIN. IV ACCESS LEFT FOREARM #20, PATENT AND INTACT, WITH KERLIX AND SLEEVES ON. IV ACCESS ON RIGHT FOREARM PATENT AND INTACT. SAFETY MEASURES MAINTAINED. KEPT COMFORTABLE. WILL CONTINUE TO MONITOR
[2022-10-10] MEDS: PANTOPRAZOLE 40 MG TABLET.DR PO SCH (08:05)
[2022-10-10 08:35] VITALS: BP 137/75
[2022-10-10] MEDS: FOLIC ACID 1 MG TABLET PO SCH (08:51)
[2022-10-10] MEDS: MULTIVITAMINS,THERAGRAN 1 UDTAB TABLET PO SCH (08:51)
[2022-10-10] MEDS: VANCOMYCIN HCL 125 MG/2.5 ML ORAL.SUSP PO SCH ×4 (08:51→20:14)
[2022-10-10] MEDS: ACIDOPHILUS/BULGARICUS 1 EACH TAB.CHEW PO SCH ×3 (08:51→17:44)
[2022-10-10] MEDS: THIAMINE HCL 100 MG TABLET PO SCH (08:51)
[2022-10-10] MEDS: METFORMIN 500 MG TABLET PO SCH ×2 (08:51→17:44)
[2022-10-10] MEDS: IV NS 0.9% 1,000 ML IV PRN ×2 (09:59→21:12)
[2022-10-10] MEDS: GENTAMICIN 320 MG in IV D5W 100 ML IV SCH (14:03)
[2022-10-10 16:23] VITALS: BP 152/88
--- NOTE | 2022-10-10 18:51 | NUR ---
MS RN CLOSING NOTE PATIENT AWAKE IN BED. A/O X 3 WATCHING TELEVISION. AZERI SPEAKING, IC DESIGN ENGINEER INTERPRETERS, WITH EPISODES OF CONFUSION. STABLE ON ROOM AIR. IN NO ACUTE DISTRESS. DENIES ANY PAIN OR DISCOMFORT AT THIS TIME. PT HAS IV ACCESS LEFT FOREARM #20, PATENT AND INTACT AND ON RIGHT FOREARM # 20 GAUGE PIV THAT IS ALSO PATENT AND INTACT. WITH KERLIX AND SLEEVES ON. PT REFUSED TO WORK WITH PHYSICAL THERAPY AGAIN TODAY. BLOOD CULTURES DRAWN TODAY AND RESULTS PENDING. PATIENT TO HAVE CXR AT 6:00 am TOMORROW. PATIENT TOOK ALL MEDICATIONS PRESCRIBED AND OTHERWISE COMPLIANT WITH CONTACT ISOLATION PRECAUTIONS. SAFETY MEASURES MAINTAINED. KEPT COMFORTABLE. WILL ENDORSE TO PLANT GENERAL MANAGER RN FOR ZAKI.
--- NOTE | 2022-10-10 19:10 | NUR ---
MS RN OPENING NOTE PATIENT IS IN BED SLEEPING. EASILY BEING AROUSED. HE IS MALAYSIAN SPEAKER. A/O X 3. HE IS ON RA, NO S/S OF SOB OR DISTRESS. PT IS ON CONTACT ISOLATION DUE TO C-DIFF POSITIVE. PT DENIES OF HAVING PAIN. IV ACCESS ONE IS AT HIS LEFT FOREARM, #20G, SL; ANOTHER ONE IS AT HIS RIGHT FOREARM; BOTH ARE PATENT AND INTACT. RIGHT FA IV RUNNING NS @75 ML/HR. TOLERATED WELL. SAFETY MEASURES ARE IN PLACED: BED IN LOWEST AND LOCKED POSITION; SIDE RAILS UP X 2; CALL LIGHT AND TABLE ARE WITHIN EASY REACH. WILL CLOSELY [id number] THE PATIENT AND PROVIDE THE CARE PATIENT NEEDS.
[2022-10-10 20:21] VITALS: BP 128/56
[2022-10-11] MEDS: METRONIDAZOLE 500 MG TABLET PO SCH ×2 (04:23→12:21)
[2022-10-11 06:15] LABS: CALCIUM, SERUM 8.4 mg/dL (8.5-10.1); CREATININE 0.8 mg/dL (0.6-1.3); POTASSIUM 3.9 mmol/L (3.5-5.1)
--- NOTE | 2022-10-11 06:54 | NUR ---
MS RN CLOSING NOTE PATIENT IS IN BED SLEEPING. EASILY BEING AROUSED. A/O X 3. HE IS ON RA, NO S/S OF SOB OR DISTRESS. PT DENIES OF HAVING PAIN. IV ACCESS ONE IS AT HIS LEFT FOREARM, #20G, SL; ANOTHER ONE IS AT HIS RIGHT FOREARM; BOTH ARE PATENT AND INTACT. RIGHT FA IV RUNNING NS @75 ML/HR. TOLERATED WELL. SAFETY MEASURES ARE IN PLACED: BED IN LOWEST AND LOCKED POSITION; SIDE RAILS UP X 2; CALL LIGHT AND TABLE ARE WITHIN EASY REACH. WILL ENDORSE THE NEXT SHIFT NURSE FOR CONTINUING PATIENT CARE.
--- NOTE | 2022-10-11 07:22 | NUR ---
MS RN OPENING NOTES RECEIVED PATIENT IN BED AWAKE AND WATCHING TV. A/O X 3. SPEAKS JAPANESE AND UNDERSTANDS MINIMAL ERITREAN, DENIES PAIN OR ANY DISCOMFORTS AT THIS TIME. CONTACT PRECAUTIONS MAINTAINED FOR C-DIFF. ON ROOM AIR, TOLERATING WELL, BREATHING EVEN AND UNLABORED. IV ACCESS ON RFA #20G INTACT WITH IVF OF NS @ 75ML/HR INFUSING WELL, NO S/S OF INFILTRATION AT SITE NOTED. PT HAS ANOTHER IV ACCESS ON LFA G#20 PATENT AND INTACT. SAFETY MEASURES IN PLACE: BED IN LOWEST LOCKED POSITION,. SR UP X2, CALL LIGHT AND TRAY TABLE W/I REACH OF PT. WILL CONTINUE TO MONITOR
[2022-10-11] MEDS: PANTOPRAZOLE 40 MG TABLET.DR PO SCH (07:44)
[2022-10-11 08:00] VITALS: BP 128/67
[2022-10-11] MEDS: FOLIC ACID 1 MG TABLET PO SCH (08:22)
[2022-10-11] MEDS: METFORMIN 500 MG TABLET PO SCH ×2 (08:22→16:24)
[2022-10-11] MEDS: ACIDOPHILUS/BULGARICUS 1 EACH TAB.CHEW PO SCH ×3 (08:22→16:24)
[2022-10-11] MEDS: MULTIVITAMINS,THERAGRAN 1 UDTAB TABLET PO SCH (08:22)
[2022-10-11] MEDS: THIAMINE HCL 100 MG TABLET PO SCH (08:22)
[2022-10-11] MEDS: VANCOMYCIN HCL 125 MG/2.5 ML ORAL.SUSP PO SCH ×3 (08:23→16:24)
[2022-10-11] MEDS: IV NS 0.9% 1,000 ML IV PRN (12:24)
[2022-10-11] MEDS: GENTAMICIN 320 MG in IV D5W 100 ML IV SCH (14:04)
[2022-10-11 16:00] VITALS: BP 142/79
--- NOTE | 2022-10-11 17:55 | NUR ---
RN DISCHARGED NOTES PATIENT DISCHARGED HOME IN STABLE CONDITION. PT IS A/O X4. ICELANDIC SPEAKING AND UNDERSTANDS MINIMAL LITHUANIAN. ON ROOM AIR, TOLERATING WELL, BREATHING EVEN AND UNLABORED. V/S TAKEN, STABLE AND RECORDED. IV ACCESSES ON RFA #20G AND LFA G#20 BOTH REMOVED WITH NO ACTIVE BLEEDING NOTED, DRY DRESSINGS APPLIED AT SITES. ALL BELONGINGS ACCOUNTED FOR AND PT SIGNED BELONGINGS LIST NO SKIN ISSUES NOTED. HEALTH TEACHINGS/DISCHARGED INSTRUCTIONS GIVEN TO PT AND VERBALIZED UNDERSTANDINGS. HOMELESS RESOURCES AND SHELTERS PROVIDED TO PT AND STATED THAT HE WILL FIND HIS WAY TO GO TO THE FPC OF HIS CHOICE. ABX FLAGYL 500MG TABS TID X 2 WEEKS SUPPLY IN A BOTTLE HANDED TO PT AND INSTRUCTED ON HOW TO TAKE IT, HE VERBALIZED UNDERSTANDING. EXIT FOLDER HANDED TO PT AND LEFT UNIT AMBULATORY AT 1740 ACCOMPANIED BY ME TO THE LOBBY. TAP CARD GIVEN TO PT TO USE FOR HIS TRANSPORTATION.
== END 2022-10-11 17:50 | disposition home or self-care (01) | DRG 720 ==
LOC: ER 08:27 → TELE 12:53 → MED 10-08 23:55
PROVIDERS: ADMIT Nurse Practitioner Acute Care; ATTEND Nurse Practitioner Acute Care
DX: A41.9 Sepsis, unspecified organism (principal); N17.0 Acute kidney failure with tubular necrosis; J69.0 Pneumonitis due to inhalation of food and vomit; G92.8 Other toxic encephalopathy; D61.818 Other pancytopenia; A04.72 Enterocolitis due to Clostridium difficile, not specified as recurrent; E87.20 Acidosis, unspecified; J15.9 Unspecified bacterial pneumonia; D69.59 Other secondary thrombocytopenia; K70.9 Alcoholic liver disease, unspecified; D64.9 Anemia, unspecified; E11.65 Type 2 diabetes mellitus with hyperglycemia; Z20.822 Contact with and (suspected) exposure to COVID-19; E86.0 Dehydration; Z59.00 Homelessness unspecified; F10.239 Alcohol dependence with withdrawal, unspecified; E83.42 Hypomagnesemia; E87.6 Hypokalemia; K76.0 Fatty (change of) liver, not elsewhere classified
CPT/HCPCS: 36415; 36600; 71045-TC; 74181-TC; 76700-TC; 80048-TC; 80053-TC; 80061-TC; 80076-TC; 80170-TC; 80202-TC; 81001; 82140-TC; 82728-TC; 82803-TC; 82962-TC; 83540-TC; 83605-TC; 83735-TC; 84100-TC; 84439-TC; 84443-TC; 84484-TC; 85025-TC; 85652-TC; 87040-TC; 87081-TC; 93307-TC; 94799-TC; 97116-TC; 97530-TC; C9113; C9803; G0378; G0480; J0692; J1580; J1650; J2060; J2543; J3370; J3411; J3475; J3490; J7030; J7050; J7060; J7120